=== PATIENT | male | born 2005 | race Caucasian/White ===

== ENCOUNTER 2025-05-19 00:20 | Outpatient (CLI) | payer BC, SELFPAY ==
[2025-05-19 09:24] LABS: HCT 47.5 % (40.0-50.0); HGB 15.8 g/dL (13.5-17.5); MCH 29.6 pg (27.0-33.0); MCHC 33.3 % (32.0-36.0); MCV 89 fL (80-95); MPV 9.9 fL (8.0-11.0); Platelet Count 284 10^3/uL (130-400); RBC 5.33 10^6/uL (4.36-5.78); RDW 11.6 % (11.8-14.1); RDW-SD 37.2 fL; WBC 9.30 10^3/uL (4.4-10.8)
[2025-05-19 09:57] LABS: Hemoglobin A1C 4.9 % (<5.7)
[2025-05-19 10:02] LABS: ALT 46 U/L (10-49); AST 26 U/L (<34); Albumin 4.6 g/dL (3.2-5.0); Alkaline Phosphatase 80 U/L (46-116); Anion Gap 6.8 mmol/L (3-11); BUN 10 mg/dL (9-23); Bilirubin, Total 0.3 mg/dL (0.2-1.2); CO2 30.2 mmol/L (20.0-31.0); Calcium 9.6 mg/dL (8.3-10.6); Chloride 104 mmol/L (98-107); Cholesterol 149 mg/dL (<200); Glucose 88 mg/dL (74-106); HDL Cholesterol 48 mg/dL (>or=40); Potassium 4.1 mmol/L (3.5-5.1); Sodium 141 mmol/L (136-145); Total Protein 7.2 g/dL (5.7-8.2)
[2025-05-19 10:05] LABS: TSH (W/Ref FT4) 1.51 uIU/mL (0.55-4.78)
[2025-05-19 10:06] LABS: Vitamin D 25 Total 13 ng/mL (20-100)
== END 2025-05-19 00:21 | disposition home or self-care (01) ==
LOC: LBO 00:21
PROVIDERS: PCP Nurse Practitioner Family; Referring Provider Nurse Practitioner Family; Visit Provider Nurse Practitioner Family
DX: F33.9 Major depressive disorder, recurrent, unspecified (principal); F41.1 Generalized anxiety disorder; Z00.00 Encounter for general adult medical examination without abnormal findings
CPT/HCPCS: 36415; 80053; 80061; 82306; 85027; 83036; 84443